=== PATIENT | male | born 1975 | race Caucasian/White ===

== ENCOUNTER → 2020-05-14 15:35 | Outpatient (BNVA) | payer SELFPAY | PROVIDERS: Family Provider Nurse Practitioner; PCP Nurse Practitioner; Visit Provider Specialist | DX: G40.109 Localization-related (focal) (partial) symptomatic epilepsy and epileptic syndromes with simple partial seizures, not intractable, without status epilepticus (principal) | CPT/HCPCS: 99213 ==

== ENCOUNTER → 2021-05-13 14:41 | Outpatient (BNVA) | payer SELFPAY | PROVIDERS: Family Provider Nurse Practitioner; PCP Nurse Practitioner; Visit Provider Specialist | DX: G40.109 Localization-related (focal) (partial) symptomatic epilepsy and epileptic syndromes with simple partial seizures, not intractable, without status epilepticus (principal); G40.909 Epilepsy, unspecified, not intractable, without status epilepticus | CPT/HCPCS: 99213; 99214 ==

== ENCOUNTER → 2023-02-21 16:30 | Outpatient (BNVA) | payer SELFPAY | PROVIDERS: Family Provider Nurse Practitioner; PCP Nurse Practitioner; Visit Provider Nurse Practitioner | DX: R06.02 Shortness of breath (principal); R53.83 Other fatigue; M79.10 Myalgia, unspecified site | CPT/HCPCS: 80053; 84443; 85025; 86000; 86618; 86666; 86757; 87400 ==

== ENCOUNTER 2024-02-21 20:00 | Emergency (ER) | payer SELFPAY ==
--- NOTE | 2024-02-21 20:53 | ECG_ITS ---
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 Measurements Intervals [place] Rate: 70 P: 30 UT: 180 QRS: 25 QRSD: 106 T: 65 QT: 410 QTc: 445 Interpretive Statements SINUS RHYTHM No previous ECG available for comparison Electronically Signed On 02-24-2024 13:26:08 CDT by Cleve Dorsey M.D. [id number]
[2024-02-21 20:58] VITALS: BP 184/102; PULSE 74; RESP 22; TEMP 36.9; O2SAT 100; BMI 32.1
--- NOTE | 2024-02-21 21:07 | XRR_ITS ---
PROCEDURE INFORMATION: Exam: XR Chest Exam date and time: 02/21/2024 9:17 PM Age: 48 years old Clinical indication: Shortness of breath; Additional info: SOB TECHNIQUE: Imaging protocol: Radiologic exam of the chest. Views: 1 view. COMPARISON: No relevant prior studies available. FINDINGS: Lungs: Unremarkable. No consolidation. Pleural spaces: Unremarkable. No pleural effusion. No pneumothorax. Heart/Mediastinum: Unremarkable. No cardiomegaly. Bones/joints: Unremarkable. XR/XR chest 1V portable [id number] IMPRESSION: No acute findings.
--- NOTE | 2024-02-21 21:14 | CTR_ITS ---
PROCEDURE INFORMATION: Exam: CT Head Without Contrast Exam date and time: 02/21/2024 9:31 PM Age: 48 years old Clinical indication: Pain; Headache; Additional info: KUNZ TECHNIQUE: Imaging protocol: Computed tomography of the head without contrast. Radiation optimization: All CT scans at this facility use at least one of these dose optimization techniques: automated exposure control; mA and/or kV adjustment per patient size (includes targeted exams where dose is matched to clinical indication); or iterative reconstruction. Other technique: STROKE PROTOCOL was implemented. COMPARISON: MR head wo con* [id number] 09/30/2017 2:00 PM RADIATION DOSE METRICS: Total DLP (mGy-cm): 1118.5 FINDINGS: Brain: Normal. No hemorrhage. Unremarkable white matter. No mass effect. Cerebral ventricles: No ventriculomegaly. Paranasal sinuses: Visualized sinuses are unremarkable. No fluid levels. Mastoid air cells: Visualized mastoid air cells are well aerated. Bones: Unremarkable. No acute fracture. Soft tissues: Unremarkable. CT/CT head wo con* [id number] IMPRESSION: No acute intracranial abnormality. ASSESSMENT: ASPECTS ([place] Stroke Program Early CT Score) is 10.
--- NOTE | 2024-02-21 21:15 | ED_ITS ---
HPI - Chest Pain 2 General: Chief Complaint: Chest Pain Stated Complaint: lightheaded dizzy SOB left hand tingling Time Seen by Provider: 02/21/24 21:06 Source: patient Mode of arrival: ambulatory Limitations: no limitations History of Present Illness: 48-year-old male states that today at 5 PM he started having some chest pain he says a sharp pain across his chest with some dyspnea history of having a headache as well states been having headaches for months. He had some dizziness states he had felt lightheaded along with some room spinning he states he had the symptoms before as well he typically go with sleeping. He denies any vomiting denies abdominal pain denies any worsening improving factors. He was able to ambulate to the room without any difficulty Associated symptoms: Reports dyspnea; Deny abdominal pain, fever(s), nausea or vomiting Review of Systems 2 Const: Denies: fever(s), chills, body aches or change in appetite ENMT: Denies: throat pain or dental pain Card: Reports: chest pain and lightheadedness Resp: Reports: dyspnea GI: Denies: abdominal pain, nausea, vomiting or diarrhea Musc: Reports: neck pain; Denies: back pain Skin/Breast: Denies: rash Neuro: Reports: headache(s) PFSH ED 2 PFSH: Family History Mother Diabetes Brother Diabetes Social History Smoking and tobacco/nicotine status: current some day tobacco/nicotine user Physical Exam 2 Const: COMMON NORMALS: no acute distress, patient oriented x3 and healthy appearing HENMT: COMMON NORMALS: normocephalic and atraumatic HEAD & SCALP: n ormocephalic and atraumatic Eye: COMMON NORMALS: Equal, round and reactive pupils present and EOMs intact bilaterally PUPIL: Yes Equal, round and reactive pupils present OTHER: No nystagmus with eye movement Neck/C-Spine: COMMON NORMALS: full ROM and supple Chest: COMMONS NORMALS: normal inspection of the chest Resp: COMMON NORMALS: normal respiratory effort, No retractions, No use of accessory muscles and clear to auscultation bilaterally AUSCULTATION: clear to auscultation bilaterally Cardio: COMMON NORMALS: regular rate, regular rhythm and No murmurs present (Cardio) RATE: regular rate RHYTHM: regular rhythm Extremity: COMMON NORMALS: normal to inspection and full ROM Neuro: COMMON NORMALS: patient oriented x3, moves all extremities and no focal motor deficits CRANIAL NERVES: Yes CN normal except as noted SPEECH: s peech normal GAIT: Yes Normal gait present Psych: COMMON NORMALS: mental status grossly normal, Normal thought process present and cooperative THOUGHT PROCESS: Normal thought process present Skin: COMMON NORMALS: no rashes or lesions noted and no wounds GENERAL SKIN EXAM: no rashes or lesions noted Course 2 Vital Signs: Vital signs: Vital Signs Temperature 98.5 F 02/21/24 23:18 Pulse Rate 73 02/21/24 23:18 Respiratory Rate 16 02/21/24 23:18 Blood Pressure 158/84 02/21/24 23:18 Pulse Oximetry 99 02/21/24 23:18 Oxygen Delivery Me thod Room Air 02/21/24 20:58 MDM - Chest Pain Medical Decision Making Patient presents here with multiple complaints including dizziness chest pain headache all symptoms have resolved after Reglan and Benadryl he is ambulatory without any difficulties no signs of ACS or posterior stroke patient stable for discharge follow-up with PCP return if worsening understands agrees to plan Medical Records I reviewed the patient's medical records. Lab Data I reviewed the patient's lab results. 02/21/24 21:17 02/21/24 21:47 Radiology Impressions Chest X-Ray 02/21/24 21:07 IMPRESSION: No acute findings. Head CT 02/21/24 21:14 IMPRESSION: No acute intracranial abnormality. ASSESSMENT: ASPECTS ([place] Stroke Program Early CT Score) is 10. Laboratory Results WBC 11.74 10^3/uL (3.29-11.43) H 02/21/24 21:17 RBC 4.85 10^6/uL (3.85-5.65) 02/21/24 21:17 Hgb 15.50 g/dL (11.27-16.99) 02/21/24 21:17 Hct 45.1 % (37-53) 02/21/24 21:17 MCV 93.0 fl (82-101) 02/21/24 21:17 MCH 32.0 pg (27-33) 02/21/24 21:17 MCHC 34.4 g/dL (30-55) 02/21/24 21:17 RDW 12.1 % (12.1-15.1) 02/21/24 21:17 Plt Count 271 10^3/cmm (157-399) 02/21/24 21:17 MPV 10.2 fL (7.4-10.4) 02/21/24 21:17 Neut % (Auto) 64.2 % 02/21/24 21:17 Lymph % (Auto) 26.7 % 02/21/24 21:17 [place] % (Auto) 6.5 % 02/21/24 21:17 Eos % (Auto) 1.4 % 02/21/24 21:17 Baso % (Auto) 0.8 % 02/21/24 21:17 Neut # (Auto) 7.54 10^3/uL (1.8-7.7) 02/21/24 21:17 Lymph # (Auto) 3.1 10^3/uL (0.8-4.8) 02/21/24 21:17 [place] # (Auto) 0.8 10^3/uL (0.2-0.9) 02/21/24 21:17 Eos # (Auto) 0.2 10^3/uL (0.0-0.8) 02/21/24 21:17 Baso # (Auto) 0.1 10^3/uL (0.0-0.1) 02/21/24 21:17 Nucleated RBC % (auto) 0 % 02/21/24 21:17 Nucleated RBCs # 0.0 /100WBC 02/21/24 21:17 Sodium 138 mmol/L (136-145) 02/21/24 21:47 Potassium 4.0 mmol/L (3.5-5.1) 02/21/24 21:47 Chloride 103 mmol/L (98-107) 02/21/24 21:47 Carbon Dioxide 24 mmol/L (22-29) 02/21/24 21:47 Anion Gap 15.0 (5-19) 02/21/24 21:47 BUN 6 mg/dL (6-20) 02/21/24 21:47 Creatinine 0.8 mg/dL (0.7-1.2) 02/21/24 21:47 GFR Calculation 102.3 mL/min (90-130) 02/21/24 21:47 Glucose 109 mg/dL (65-115) 02/21/24 21:47 Calculated Osmolality 284 mOsm/kg (285-295) L 02/21/24 21:47 Calcium 9.4 mg/dL (8.5-10.5) 02/21/24 21:47 Total Bilirubin 0.5 mg/dL (0.15-1.2) 02/21/24 21:47 AST 15 U/L (0-40) 02/21/24 21:47 ALT 18 U/L (0-41) 02/21/24 21:47 Alkaline Phosphatase 121 U/L (40-130) 02/21/24 21:47 Troponin T Baseline < 6 ng/L (0-15) 02/21/24 21:47 NT-Pro-B Natriuret Pep 52 pg/mL (0-125) 02/21/24 21:47 Total Protein 7.6 g/dL (6.6-8.7) 02/21/24 21:47 Albumin 4.7 g/dL (3.5-5.2) 02/21/24 21:47 Globulin 2.9 g/dL (1.3-4.6) 02/21/24 21:47 Lipase 16 U/L (13-60) 02/21/24 21:47 All radiology interpretation(s) finalized by discharge EKG Data EKG 1: I personally reviewed and interpreted this EKG as follows: EKG interpretation date: 02/21/24 EKG interpretation time: 20:53 Interpretation: nsr hr [address] or t wave abnormalities qrs 106 qtc 431 Discharge Plan Discharge Patient Disposition: Home Clinical Impression: Chest pain, Dizziness, Hypertension Condition: Stable Prescriptions: No Action doxycycline hyclate 100 mg capsule 100 mg PO BID 10 Days Qty: 20 0RF levetiracetam 1,000 mg tablet See Rx Instructions .ROUTE .COMPLEX Qty: 300 0RF Dose Instruction: TAKE 1 1/2 TABLETS BY MOUTH TWICE DAILY Rx Instructions: TAKE 1 1/2 TABLETS BY MOUTH TWICE DAILY Discharge Orders: Discharge ED (Routine); Ordered 02/21/24 Ordered By: Justa Alegre Referrals: Kathryn Butts MD [Physician] - 1-3 days Alisha Garcia FNP [Primary Care Provider] - 4-7 days Discharge Diet: Advance as tolerated Discharge Activity: Resume usual activity Patient Instructions: Chest Pain (ED), Hypertension (ED), Dizziness (ED) Coding Level of Care Code ED Supervisor Model Making for Antonio Arnett
[2024-02-21] MEDS: diphenhydrAMINE 50 mg/mL SDV 1mL IVP (21:20)
[2024-02-21] MEDS: metoclopramide 5 mg/mL SDV 2 mL 10 MG IVP (21:20)
[2024-02-21 21:25] LABS: Basophils # 0.1 10^3/uL (0.0-0.1); Basophils % 0.8 %; Eosinophils # 0.2 10^3/uL (0.0-0.8); Eosinophils % 1.4 %; Hematocrit 45.1 % (37-53); Lymphocytes # 3.1 10^3/uL (0.8-4.8); Lymphocytes % 26.7 %; Mean Corpuscular HGB Conc 34.4 g/dL (30-55); Mean Platelet Volume 10.2 fL (7.4-10.4); Monocytes # 0.8 10^3/uL (0.2-0.9); Monocytes % 6.5 %; Neutrophils # 7.54 10^3/uL (1.8-7.7); Neutrophils % 64.2 %; Nucleated Red Blood Cells % 0 %; Platelet Count 271 10^3/cmm (157-399); Red Blood Count 4.85 10^6/uL (3.85-5.65); Red Cell Distribution Width 12.1 % (12.1-15.1); White Blood Count 11.74 10^3/uL (3.29-11.43)
[2024-02-21 22:09] VITALS: BP 158/84; PULSE 73; RESP 16; O2SAT 99
[2024-02-21 22:15] LABS: Troponin(5th) Baseline < 6 ng/L (0-15)
[2024-02-21 22:25] LABS: Alanine Aminotransferase 18 U/L (0-41); Albumin Level 4.7 g/dL (3.5-5.2); Alkaline Phosphatase 121 U/L (40-130); Aspartate Amino Transferase 15 U/L (0-40); Blood Urea Nitrogen 6 mg/dL (6-20); Calcium 9.4 mg/dL (8.5-10.5); Carbon Dioxide 24 mmol/L (22-29); Creatinine Clr Calc Pharmacy 135.7975; Globulin 2.9 g/dL (1.3-4.6); Glomerular Filtration Rate 102.3 mL/min (90-130); Glucose 109 mg/dL (65-115); Lipase 16 U/L (13-60); NT Pro B Type Natriuretic Pept 52 pg/mL (0-125); Total Bilirubin 0.5 mg/dL (0.15-1.2); Total Protein 7.6 g/dL (6.6-8.7)
[2024-02-21] MEDS: hyDRALAzine 20 mg/mL INJ 1 mL 10 MG IVP (22:45)
[2024-02-21 22:49] LABS: Chloride 103 mmol/L (98-107); Osmolality Calculated 284 mOsm/kg (285-295); Sodium 138 mmol/L (136-145)
[2024-02-21 23:18] VITALS: BP 158/84; PULSE 73; RESP 16; TEMP 36.9; O2SAT 99
== END 2024-02-21 23:19 | disposition home or self-care (01) ==
PROVIDERS: Emergency Provider Emergency Medicine; PCP Nurse Practitioner
DX: R07.9 Chest pain, unspecified (principal); R42 Dizziness and giddiness; I10 Essential (primary) hypertension; Z72.0 Tobacco use
CPT/HCPCS: 36415; 70450; 71045; 80053; 83690; 83880; 84484; 85025; 93005; 96374; 96375; 99285; J0360; J1200; J2765

== ENCOUNTER → 2024-06-06 17:21 | Outpatient (BNVA) | payer BC, MEDICAID, SELFPAY | PROVIDERS: PCP Nurse Practitioner; Visit Provider Specialist | DX: N52.9 Male erectile dysfunction, unspecified (principal); G40.109 Localization-related (focal) (partial) symptomatic epilepsy and epileptic syndromes with simple partial seizures, not intractable, without status epilepticus | CPT/HCPCS: 36415; 84153; 84403; 84439; 84443 ==

== ENCOUNTER → 2024-06-28 15:58 | Outpatient (BNVA) | payer BC, MEDICAID, SELFPAY | PROVIDERS: PCP Nurse Practitioner Family; Visit Provider Nurse Practitioner Family | DX: N52.9 Male erectile dysfunction, unspecified (principal) | CPT/HCPCS: 83036; 84146; 84402 ==

== ENCOUNTER 2024-07-18 08:46 | Day surgery (SDC) | payer BC, MEDICAID, SELFPAY ==
[2024-07-18 09:00] VITALS: BP 127/74; PULSE 54; RESP 18; TEMP 36.8; O2SAT 97
[2024-07-18] MEDS: sodium chloride 0.9% 1,000 ML 30 ML IV (09:13)
--- NOTE | 2024-07-18 10:28 | ANES.PREANE2 ---
Pre-Anesthetic Assessment Height/Weight: Height 1.8 m Weight 111.13 kg Temp Pulse Resp BP Pulse Ox O2 Del Method 98.2 F 54 L 18 127/74 97 Room Air 07/18/24 09:00 07/18/24 09:00 07/18/24 09:00 07/18/24 09:00 07/18/24 09:00 07/18/24 09:00 Preop Diagnosis: screening Operation Date: 07/18/24 10:00 Proposed Procedures p EGD Dilation W/ Balloon 77697, 05138, G0121, R13.10, Z12.11(Not Applicable) - Arturo Mccauley DO s Colonoscopy(Not Applicable) - Arturo Mccauley DO Familial anesthetic complications: none Was Beta Alfonso taken within 24 hours: Yes Was Clonidine taken within 24 hours: N/A Last intake: Intake Last Liquid Date 07/17/24 Last Liquid Time 20:00 Last Solid Date 07/17/24 Last Solid Time 08:00 Social No alcohol and No tobacco Exam alert, oriented x 3 and clear to auscultation bilaterally Airway Mallampati: Class III Dentition: full History/ROS No significant history except as noted Pulmonary Sleep Apnea (does not wear CPAP, in the process of getting one) CV/HEM Hypertension None reported Hepatic None reported GI None reported Metabolic None reported Musc/skel None reported Neuropsych Seizure (compliant with medication, last seizure July 2023) Anesthetic Plan ASA status: 3 Anesthesia: Anesthesia Evaluation and MAC Risk of > 500 ml blood loss (7ml/kg in children): No Medications/Allergies Home Medications Medication Instructions Recorded Confirmed Last Taken Type propranolol 20 mg tablet 20 mg PO BID #60 tabs 06/08/24 07/16/24 07/18/24 Rx pantoprazole 40 mg tablet,delayed 40 mg PO BID 6 weeks #84 tabs 06/18/24 07/16/24 07/18/24 Rx release (Protonix) sildenafil 50 mg tablet (Viagra) 50 mg PO DAILY PRN sexual activity 06/28/24 07/16/24 Unknown Rx #15 tabs ciclopirox 8 % topical solution 1 applic topical DAILY 07/16/24 07/16/24 07/15/24 History (Ciclodan) levetiracetam 1,000 mg tablet 1,500 mg PO BID 07/16/24 07/16/24 07/18/24 History Allergies Allergy/AdvReac Type Severity Reaction Status Date / Time No Known Allergies Allergy Verified 07/16/24 13:41 Current Medications Generic Name Dose Route Start Last Admin Trade Name Angy PRN Reason Stop Dose Admin Sodium Chloride 1,000 mls @ 30 mls/hr 07/18/24 09:00 07/18/24 09:13 Sodium Chloride 0.9% IV 07/19/24 08:59 30 mls/hr .Q24H BANDAR Administration PFSH Anesthesia Medical History (Updated 07/13/24 @ 07:57 by SHAHIDA Bazan) Hypotestosteronemia in male Nail fungal infection TMJ dysfunction DDD (degenerative disc disease), cervical Erectile dysfunction Family History Mother Diabetes Brother Diabetes Social History Smoking and tobacco/nicotine status: former use of tobacco/nicotine (quit 1 year ago) Data Anesthesia Cardiac Studies: No Data to Display
--- NOTE | 2024-07-18 10:59 | W.PM.OPSUD ---
Surgery/Procedure H&P Update DATE OF PROCEDURE: July 18, 2024 DATE H&P PERFORMED: 06/18/24 H&P UPDATE INFORMATION: I have reviewed H&P completed within last 30 days, I have examined patient prior to procedure and No changes to prior documentation PREOP DIAGNOSIS: screening PLANNED PROCEDURE: Operation Date: 07/18/24 10:00 Proposed Procedures p EGD Dilation W/ Balloon 85858, 49731, G0121, R13.10, Z12.11(Not Applicable) - DO laly Cerda Colonoscopy(Not Applicable) - Arturo Mccauley DO
[2024-07-18 11:43] VITALS: BP 156/98; PULSE 63; RESP 16; TEMP 36.1; O2SAT 97
[2024-07-18 12:46] VITALS: BP 117/94; PULSE 64; RESP 16; O2SAT 100
--- NOTE | 2024-07-18 12:55 | ANE.PACU2 ---
Inpatient post-anesthesia follow up: Airway intact: Yes Vital signs: Temperature 97.0 F Pulse Rate 64 Respiratory Rate 16 Blood Pressure 117/94 Pulse Oximetry 100 Oxygen Delivery Me thod Room Air Oxygen Flow Rate 2 Fraction of Inspir ed Oxygen Hydration adequate: Yes Nausea and vomiting: No Pain level: 1 Mental status: Baseline
== END 2024-07-18 12:55 | disposition home or self-care (01) ==
PROVIDERS: PCP Nurse Practitioner Family; Visit Provider Surgery
PROC: 0DJD8ZZ Inspection of Lower Intestinal Tract, Via Natural or Artificial Opening Endoscopic (ICD-10-PCS; CPT 45378; 2024-07-18 10:00)
DX: Z12.11 Encounter for screening for malignant neoplasm of colon (principal); D12.2 Benign neoplasm of ascending colon; D12.5 Benign neoplasm of sigmoid colon; D12.8 Benign neoplasm of rectum; K22.2 Esophageal obstruction; K57.30 Diverticulosis of large intestine without perforation or abscess without bleeding; K44.9 Diaphragmatic hernia without obstruction or gangrene; K29.80 Duodenitis without bleeding; K29.70 Gastritis, unspecified, without bleeding; R13.10 Dysphagia, unspecified; R12 Heartburn; K21.00 Gastro-esophageal reflux disease with esophagitis, without bleeding; Z87.891 Personal history of nicotine dependence; G47.30 Sleep apnea, unspecified; I10 Essential (primary) hypertension
CPT/HCPCS: 43239; 43249; 45385; 88305; J2250; J2704; J7030

== ENCOUNTER 2025-04-09 09:08 | Outpatient (CLI) | payer BC, MEDICAID, SELFPAY ==
--- NOTE | 2025-04-09 | ECG_ITS ---
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 Interpretive Statements Lung unchanged pre/post procedure; Intraprocedure shortess of breath; Symptoms resoled by discharge PROCEDURE: The baseline electrocardiogram showed sinus bradycardia with some nonspecific T wave changes in the precordial leads. At the baseline, the patient's blood pressure was 136 over mm Hg with a heart rate of 55. The patient exercised for 8 minutes and 30 seconds on a standard Saravanan protocol. Patient attained a maximum heart rate of 152 beats per minute(89% of the maximum predicted heart rate) with a blood pressure at the peak exercise of 213/97 mm Hg. The EKG at the peak exercise revealed [address] depressions in leads II, 3, aVF, V4-V6.. Patient did not have any chest pain or any significant arrhythmis with the exercise Sestamibi was injected 1 minute prior to the peak exercise 33.6 mCi During the recovery phase, there were no new changes. The EKG showed some nonspecific ST-T changes in the inferior and anterolateral leads Blood pressure at the end of the recovery phase was 171/87 mm Hg with a heart rate of 88 per minute. CONCLUSION: 1. Abnormal EKG response to [treadmill exercise suggesting ischemia in the anterolateral and inferior wall regions 2. No exercise-induced chest pain or cardiac arrhythmia 3. Fair exercise tolerance, attained a maximum of 10.2 METs 4. Sestamibi/Sestamibi perfusion results pending; see separate report. Electronically Signed On 04-16-2025 10:45:19 CDT by Aries Robb M.D. [email or web address] [id number]
[2025-04-09 09:26] VITALS: BMI 33.5
--- NOTE | 2025-04-09 09:29 | NMCV_ITS ---
NM darwin perf SPECT r/s* [id number] Luciano Diaz Age: 49 Gender: M : 1975 Exam Date: 04/09/2025 10:02 Ordering Phys: Kathryn Butts MD Technologist: MEL Pace Exam Location: [facility] Indications: cp STRESS TEST [facility] IMAGE PROTOCOL Rest/Stress 1 Exercise Day Radiopharmaceutical Dose (mCi) Administration Site Administered by Rest: Tc-99m 10.7 IV Dian Joseph, ORDER PACKER OR PACKAGER Sestamibi Stress:Tc-99m 32.6 IV Dian Olivagle, ORDER PACKER OR PACKAGER Sestamibi Rest: 09-Apr-2025 60 Discovery 630 Stress: 09-Apr-2025 15 Discovery 630 Radiopharmaceutical was injected at 85 % maximum heart rate. Images obtained in supine and prone position. SPECT RESULTS Technical Quality: Good Raw Data Analysis: Normal Image Corrections: No attenuation or motion correction applied Summed Stress Score: 1 Summed Rest Score: 0 Summed Difference Score: 1 PERFUSION FINDINGS Small area of slightly decreased tracer uptake in the apical lateral segment with reversibility on rest FUNCTIONAL RESULTS (calculated via Gated SPECT) Stress Image LV EF (%): 79 Stress EDV (mL):99 TID: 0.82 Stress ESV (mL):21 FUNCTIONAL FINDINGS: Segmental wall motion analysis revealing no gross wall motion abnormalities IMPRESSIONS 1. Myocardial perfusion imaging revealing a small area of slight reversible defect suggestive of subtle area of ischemia in the distribution of the circumflex artery. 2. Normal LV ejection fraction of 79%. 3. LV wall motion analysis revealing no gross wall motion abnormalities. 4. Normal LV volume No similar previous studies are available for comparison Dr Aries Robb MD FACC (Electronically Signed) Final Date: 09 April 2025 13:47 S
[2025-04-09 11:06] VITALS: BP 171/87; PULSE 92
== END 2025-04-09 09:09 | disposition home or self-care (01) ==
LOC: CDL 09:11
PROVIDERS: PCP Nurse Practitioner Family; Visit Provider Specialist
DX: R07.9 Chest pain, unspecified (principal); R94.39 Abnormal result of other cardiovascular function study; R00.1 Bradycardia, unspecified; R94.31 Abnormal electrocardiogram [ECG] [EKG]
CPT/HCPCS: 36415; 78452; 93017; A9500

== ENCOUNTER → 2025-05-29 17:03 | Outpatient (BNVA) | payer BC, MEDICAID, SELFPAY | PROVIDERS: PCP Nurse Practitioner Family; Visit Provider Internal Medicine Cardiovascular Disease | DX: R94.39 Abnormal result of other cardiovascular function study (principal); R58 Hemorrhage, not elsewhere classified | CPT/HCPCS: 36415; 80048; 85025; 85610 ==

== ENCOUNTER 2025-06-10 07:16 | Outpatient (CLI) | payer BC, MEDICAID, SELFPAY ==
[2025-06-10] VITALS (17 sets, daily range): BP systolic 112–167; BP diastolic 61–92; PULSE 41–49; RESP 7–18; TEMP 36.6; O2SAT 94–100; BMI 34.0
--- NOTE | 2025-06-10 07:30 | XACV_ITS ---
Exam Room: 2 Ht: 180 cm Wt: 111 kg BSA: 2.39 m2 Gender: Male : 1975 Any Known Allergies: Antibiotics Exam Priority: Routine Procedure(s): Procedure Description: Diagnostic procedure Procedure Description: Left Heart Catheterization Procedure Description: Left ventriculography Procedure Description: Coronary Angiography Diagnostic Cath Status: Elective Diagnostic Findings * INDICATION: Chest pain/ abnormal stress test/ syncope. * Left Main has no significant disease. * Left Anterior Descending has mild luminal irregularities. * Circumflex has mild luminal irregularities. * Distal Right Coronary Artery: minimal 30% stenosis, SPEEDY: 3 flow. PDA has diffuse moderate disease. * Coronary angiography shows right dominance. Conclusions 1. Non-obstructive coronary artery disease. 2. Normal left ventricular systolic function. Ejection fraction of 50%. Recommendations * Risk factor modification. * Outpatient cardiology follow up in 2 weeks. Interventional RX Recommendation: medical therapy and/or counseling Diagnostic RX Recommendation: medical therapy and/or counseling Anticoagulation: Heparin Ventriculography Ejection Fraction: 50.0 % Pressures Phase:Rest AO : 129 / 78 ( 99 ) @ 9:49:00 AM 189 / 87 ( 122 ) @ 10:08:00 AM 186 / 86 ( 121 ) @ 10:08:00 AM LV : 189 / -2 / 26 @ 10:06:00 AM 187 / -4 / 24 @ 10:07:00 AM 147 / -3 / 23 @ 10:08:00 AM Valves Phase:DefaultPhase AV : 0.0 @ 9:17:44 AM 0.0 @ 9:17:44 AM AV Mean Gradient: 0.0 @ 9:17:44 AM Clinical Evaluation EBL: 5mL-10mL Procedural Details Procedure Consent Obtained. Admit Source: Out Patient. Pre-Procedure Time Out. Identified patient by full name and date of as verbalized by the patient/guarantor. Does the consent match the physician's order: Yes. Accurate & Complete Informed Consent: Yes. Inpatient/Outpatient History & Physical on Chart: Yes. If H&P is completed, is and addenduem needed: No; If yes, is the addendum complete: N/A. Visualize and Verify Site with Patient/Guarantor: N/A. Relevant Radiology Images available: N/A. The risks, benefits, and alternatives of sedation and/or procedure were discussed by physician. The patient agrees to continue. Procedure started. [facility] Clinical Fraility Score: 3: Managing Well. 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 Chest Pain Symptom Assessment: Atypical Angina. Correct patient, site and procedure confirmed by cath team. Current diagnosis: Chest Pain, Syncope, Abnormal stress test. IV Site on Arrival: 20 gauge in the left anticubital. PERRLA. Strong, equal hand furniture packer bilaterally. Lungs clear x 5 lobes. IV Fluids: 0.9% NaCl at KVO. 0 mL infused prior to lab coordinator. Pre Procedural Pulses: bilateral radial was 3+. Pre Procedural Pulses: bilateral posterior tibial was 3+. Pre Procedural Pulses: bilateral dorsalis pedis was 3+. Oxygen started at 2liters/min via nasal canula. right radial was prepped with chloroprep then draped in the usual sterile fashion. right groin was prepped with chloroprep then draped in the usual sterile fashion. Physician notified. Baseline sample Acquired. HR: 48 BPM. Physician arrived. Physician scrubbed in. Immediate Pre-Procedure Time Out. Correct Patient: Yes; Correct Procedure: Yes; Correct Site: Yes; Correct Patient Position: Yes; Correct Supplies: Yes; Dried Flammable Prep: Yes; Blood Products Available: No;. Lidocaine 1% infiltrated to the right radial. Arterial access obtained. A 5 luxembourgish TIG catheter in over wire. Catheter removed over the exchange wire. A 5 luxembourgish JL3.5 catheter in over wire. Multiple views taken of left coronary artery. Catheter removed over the exchange wire. A 5 luxembourgish JR4 catheter in over wire. Multiple views taken of right coronary artery. Catheter removed over the exchange wire. A 5 luxembourgish Angled Pig catheter in over wire. EDP Sample taken: LV 189/-3,26; HR: 42 BPM; SpO2: 100%. LV gram performed in RYAN @ 10 mL/second for a total of 30 mL. EDP Sample taken: LV 187/-5,24; HR: 48 BPM; SpO2: 100%. Pullback taken: LV 147/-4,23; AO 189/87(122); Mean: 0mmHg, Peak to Peak: 0mmHg, SEP: 3sec/min; HR: 49 BPM; SpO2: 100%. Catheter removed over the exchange wire. A TR Band was successful obtaining hemostatsis at the Right Radial artery insertion site. Post Procedure: Pulses reassessed and unchanged. PERRLA. Strong, equal hand furniture packer bilaterally. No VTE prophylaxis required. Medication's Wasted: Lidocaine 1% = 18 mL. Medication's Wasted: Nitro = 49.8 mg. Medication's Wasted: Heparin = 1000 unit. Medication's Wasted: Other = Fentanyl 50mcg. Total IV fluids: 25 mL. Post-op diagnosis: Non-obstructive CAD. Complications: None. Estimated blood loss: 5mL-10mL. Responsiveness - Normal response to verbal stimuli; alert and oriented, PERRLA. Airway - Unaffected, no intervention required; spontaneous ventilation. Circulation: W/N/L, pulses unchanged. Nausea/Vomiting: No. Procedure completed. Patient transferred by wheelchair to CPRU. Vital chart was stopped. Access Site Site: Right Radial artery Sheath Size: 6 Fr Hemostasis Method: TR Band Hemostasis Success: Successful Procedure Medications Start: 8:41 AM Stop: 8:41 AM Medication: Versed Amount: 1 mg Route: I.V. Start: 8:41 AM Stop: 8:41 AM Medication: Fentanyl Amount: 50 mcg Route: I.V. Start: 8:44 AM Stop: 8:44 AM Medication: Versed Amount: 1 mg Route: I.V. Start: 8:47 AM Stop: 8:47 AM Medication: Nitrogylcerin Amount: 200 mcg Route: I.A. Start: 8:49 AM Stop: 8:49 AM Medication: Heparin Amount: 5000 units Route: I.V. I, the attending physician, have reviewed and verified all procedure medications. Yes, all medications given per verbal order History/Risk Factors Hypertension: No Dyslipidemia: No Peripheral Arterial Disease (PAD): No Myocardial Infarction (VT): No Obesity: Yes Renal Disease: No Tobacco Use: Former Prior Interventions PCI: No CABG: No Valve Surgery: No Report Signatures Finalized by True Oconnor MD on 06/10/2025 09:31 AM
--- NOTE | 2025-06-10 08:35 | P.HPUD_ITS ---
Surgery/Procedure H&P Update DATE OF PROCEDURE: June 10, 2025 DATE H&P PERFORMED: 05/29/25 H&P UPDATE INFORMATION: I have reviewed H&P completed within last 30 days, I have examined patient prior to procedure and No changes to prior documentation PREOP DIAGNOSIS: Chest pain/ abnormal stress test/ syncope PRIMARY INDICATION FOR PROCEDURE: Chest pain/ abnormal stress test/ syncope PLANNED PROCEDURE: Operation Date: 06/10/25 08:30 Proposed Procedures p Cardiac Catheterization - [facility] w/wo LV & Coros(Left) - True Oconnor M.D Possible percutaneous coronary intervention PATIENT REASSESSED PRIOR TO SEDATION, WITH NO CHANGE NOTED: Yes PHYSICAL EXAM: alert, oriented x 3, clear to auscultation bilaterally and regular rate & rhythm AIRWAY EVAL/ANESTHESIA PLAN: normal airway, ASA III, Local Anesthesia, Risks, benefits & alternatives of sedation and/or procedure discussed and Patient agrees to continue as planned ADDITIONAL INFORMATION: Moderate sedation
--- NOTE | 2025-06-10 11:03 | PC.NURSE ---
received pt from petroleum laboratory technician post diagnostic heart cath. pt very drowsy but able to be awakened when spoken to. pt complains of no pain. pt and family educated on restrictions of right wrist and both acknowledged understanding. nurse to educated throughout recovery.
== END 2025-06-10 12:25 | disposition home or self-care (01) ==
PROVIDERS: PCP Nurse Practitioner Family; Visit Provider Internal Medicine
DX: I25.119 Atherosclerotic heart disease of native coronary artery with unspecified angina pectoris (principal); E66.9 Obesity, unspecified; Z68.34 Body mass index [BMI] 34.0-34.9, adult; G40.909 Epilepsy, unspecified, not intractable, without status epilepticus; K21.9 Gastro-esophageal reflux disease without esophagitis; D12.6 Benign neoplasm of colon, unspecified; Z87.891 Personal history of nicotine dependence; R55 Syncope and collapse; R00.1 Bradycardia, unspecified
CPT/HCPCS: 36415; 93458; 96365; 99152; C1769; C1887; C1894; J1644; J2250; J3010; J3490; J7030; J9999; Q0163; Q9967